=== PATIENT | male | born 1980 | race Two or more races ===

== ENCOUNTER 2018-06-28 09:04 | Outpatient (CLI) | payer OTHER | END 2018-06-28 09:12 | disposition home or self-care (01) | LOC: RAD 501 09:04 | DX: M54.6 Pain in thoracic spine (principal); M54.5 Low back pain ==

== ENCOUNTER 2019-09-19 14:49 | Emergency (ER) | payer OTHER ==
[~2019-09-19] VITALS: Ht 170.2 cm; Wt 95.3 kg
== END 2019-09-19 18:40 | disposition home or self-care (01) ==
LOC: ER 14:49
DX: S20.212A Contusion of left front wall of thorax, initial encounter (principal); S70.02XA Contusion of left hip, initial encounter; V49.88XA Car occupant (driver) (passenger) injured in other specified transport accidents, initial encounter; Y93.89 Activity, other specified; Y92.413 State road as the place of occurrence of the external cause; Y99.8 Other external cause status